=== PATIENT | female | born 1995 | race Caucasian/White ===

== ENCOUNTER 2018-12-13 09:32 | Emergency (ER) | payer MEDICAID ==
[~2018-12-13] VITALS: Ht 171.4 cm; Wt 50.0 kg
--- NOTE | 2018-12-13 10:00 | NUR ---
PT STATED THAT SHE HAD SEPSIS FOR KIDNEY INFECTION 1 MONTH AGO. PT REPORTS FEVER AND VOMITING LAST NIGHT AND BURNING WITH URINATION TODAY. PT IS ALERT, ORIENTED, WITH NAD. PT IS CONNECTED TO THE MONITOR. CALL LIGHT WITHIN REACH.
[2018-12-13] MEDS ORDERED: PHENAZOPYRIDINE 200 MG TABLET PO ONE (10:30)
[2018-12-13] MEDS ORDERED: ONDANSETRON ODT 4 MG PO ONE (10:30)
[2018-12-13] MEDS ORDERED: ONDANSETRON ODT 4 MG ONE (10:49)
[2018-12-13] MEDS ORDERED: PHENAZOPYRIDINE 200 MG TABLET ONE (10:49)
--- NOTE | 2018-12-13 10:52 | NUR ---
pt medicated per order.
[2018-12-13 10:58] LABS: HCG UR SG 1.006 (1.003-1.030); MICROSCOPIC AUTO
[2018-12-13 10:59] LABS: BASOPHILS # (AUTO) 0.03 x10^3/uL (0-0.1); BASOPHILS % (AUTO) 1 % (0-1); EOSINOPHILS # (AUTO) 0.23 x10^3/uL (0-0.4); EOSINOPHILS % (AUTO) 5 % (1-7); LYMPHOCYTES # (AUTO) 2.08 x10^3/uL (1-3.4); LYMPHOCYTES % (AUTO) 43 % (22-44); MD NO; MEAN CORPUSCULAR HEMOGLOBIN 27.4 pg (27.0-34.8); MEAN CORPUSCULAR HGB CONC 33.4 g/dL (32.4-35.8); MEAN CORPUSCULAR VOLUME 82.2 fL (80-100); MEAN PLATELET VOLUME 7.7 fL (7.4-10.4); MONOCYTES # (AUTO) 0.59 x10^3/uL (0.2-0.8); MONOCYTES % (AUTO) 12 % (2-9); NEUTROPHILS # (AUTO) 1.96 x10^3/uL (1.8-6.8); NEUTROPHILS % (AUTO) 40 % (42-75); PLATELET COUNT 202 x10^3/uL (130-400); RED BLOOD COUNT 4.42 x10^6/uL (3.82-5.3); RED CELL DISTRIBUTION WIDTH 16.2 % (9.6-15.2)
[2018-12-13 11:02] LABS: CULTURE INDICATED? YES
[2018-12-13 11:08] LABS: ALBUMIN 3.1 g/dL (3.4-5.0); ANION GAP 4 mmol/L (5-15); CALCIUM 8.4 mg/dL (8.5-10.1); CHLORIDE 111 mmol/L (98-107); CREATININE 0.73 mg/dL (0.55-1.02)
--- NOTE | 2018-12-13 11:20 | NUR ---
PROVIDER AT BEDSIDE.
[2018-12-13 11:23] VITALS: BP 117/69
--- NOTE | 2018-12-13 12:08 | NUR ---
Patient given discharge instructions and they have confirmed that they understand the instructions. Patient ambulatory with steady gait.
== END 2018-12-13 12:09 | disposition home or self-care (01) ==
LOC: ED 11:46
DX: B34.9 Viral infection, unspecified (principal); R30.0 Dysuria
CPT/HCPCS: 36415; 80048; 81001; 81025; 82040; 85025; 87086; 99283; Q0162